=== PATIENT | male | born 1965 ===

== ENCOUNTER 2017-02-24 11:39 | Day surgery (SDC) | payer BC ==
--- NOTE | 2017-02-24 09:09 | PCM.OPNOTE ---
- General Post-Op/Procedure Note Date of Surgery/Procedure: 02/24/17 Operative Procedure(s): Right Inguinal Hernia Repair Findings: Right Indirect Inguinal Hernia Pre Op Diagnosis: Right Inguinal Hernia Post-Op Diagnosis: Right Indirect Inguinal Hernia Anesthesia Technique: General ET tube Primary Surgeon: Vanessa Rangel Fluid Replacement, Intraop: 700 (ml) EBL in mLs: 10 Complications: None Condition: Good
[~2017-02-24 11:39] MED LIST: Bupivacaine 0.5% 30 ML SDV ONE; Ketorolac 30 MG/ML SDV ONE; Lactated Ringers 1,000 ML IV SCH; Lidocaine 2% 5 ML SDV ONE; Midazolam 1 MG/ML 2 ML SDV ONE; Neostigmine Methylsulfate 1 MG/ML 5 ML Syringe ONE; Ondansetron 4 MG/2 ML SDV ONE; Propofol 200 MG/20 ML SDV ONE; Rocuronium 10 MG/ML 10 ML Syringe ONE; Sodium Chloride 0.9% 10 ML Syringe FLUSH PRN; Sodium Chloride 0.9% 2.5 ML Syringe FLUSH PRN; ceFAZolin 2 GM in Premix Bag 1 BAG IV ONE; fentaNYL 100 MCG/2 ML SDV ONE; fentaNYL 250 MCG/5 ML SDV ONE
--- NOTE | 2017-02-24 12:38 | PCM.PREANE ---
Preanesthetic Assessment - Anesthesia/Transfusion/Family Hx Anesthesia History: Prior Anesthesia Without Reaction Other Type of Anesthesia Reaction Comment: pt states he is hard to wake, unsure of family hx as he is adopted Transfusion History: No Prior Transfusion(s) Intubation History: Unknown - Review of Systems General: No Symptoms Pulmonary: No Symptoms Cardiovascular: No Symptoms Gastrointestinal: No symptoms Neurological: No Symptoms Other: Reports: None - Physical Assessment Height: 1.83 m Weight: 78.018 kg ASA Class: 1 Mental Status: Alert & Oriented x3 Airway Class: Mallampati = 2 Dentition: Reports: Normal Dentition Thyro-Mental Finger Breadths: 3 Mouth Opening Finger Breadths: 3 ROM/Head Extension: Full Lungs: Clear to auscultation, Normal respiratory effort Cardiovascular: Regular Rate, Regular Rhythm - Allergies Allergies/Adverse Reactions: Allergies Allergy/AdvReac Type Severity Reaction Status Date / Time dust/pollen Allergy runny nose Uncoded 02/18/17 08:14 - Blood Blood Available: No - Anesthesia Plan Pre-Op Medication Ordered: None - Acknowledgements Anesthesia Type Planned: General Anesthesia Pt an Appropriate Candidate for the Planned Anesthesia: Yes Alternatives and Risks of Anesthesia Discussed w Pt/Guardian: Yes Pt/Guardian Understands and Agrees with Anesthesia Plan: Yes PreAnesthesia Questionnaire HEENT History: Reports: Allergic Rhinitis, Other (See Below) (lost vision to the right due to injury by soft ball 10 years ago) Genitourinary History: Reports: None - Past Surgical History Head Surgeries/Procedures: Reports: None HEENT Surgical History: Reports: Naso-Sinus Surgery, Tonsillectomy, Other (See Below) Other HEENT Surgeries/Procedures: vitreous of the rt eye due to trauma Male Surgical History: Reports: Vasectomy Musculoskeletal Surgical History: Reports: Other (See Below) Other Musculoskeletal Surgeries/Procedures:: left knee surgery for ligament repair - SUBSTANCE USE Smoking Status *Q: Never Smoker Recreational Drug Use History: No - HOME MEDS Home Medications: Home Meds . [No Known Home Meds] 02/18/17 [History] - CURRENT (IN HOUSE) MEDS Current Meds: Current Medications Lactated Ringer's (Ringers, Lactated) 1,000 mls @ 125 mls/hr IV ASDIRECTED YOVANY Last Admin: 02/24/17 12:00 Dose: 125 mls/hr Sodium Chloride (Saline Flush) 10 ml FLUSH ASDIRECTED PRN PRN Reason: Keep Vein Open Sodium Chloride (Saline Flush) 2.5 ml FLUSH ASDIRECTED PRN PRN Reason: Keep Vein Open Discontinued Medications Bupivacaine HCl (Marcaine 0.5%) Confirm Administered Dose 30 ml .ROUTE .STK-MED ONE Stop: 02/24/17 08:42 Fentanyl (Sublimaze) Confirm Administered Dose 100 mcg .ROUTE .STK-MED ONE Stop: 02/24/17 11:29 Fentanyl (Sublimaze) Confirm Administered Dose 250 mcg .ROUTE .STK-MED ONE Stop: 02/24/17 11:29 Glycopyrrolate () Confirm Administered Dose 1 mg .ROUTE .STK-MED ONE Stop: 02/24/17 11:29 Cefazolin Sodium/Dextrose 2 gm (/ Premix) 50 mls @ 100 mls/hr IV ONETIME ONE Stop: 02/22/17 08:22 Ketorolac Tromethamine (Toradol) Confirm Administered Dose 30 mg .ROUTE .STK- MED ONE Stop: 02/24/17 11:29 Lidocaine (Xylocaine-Mpf 2%) Confirm Administered Dose 10 ml .ROUTE .STK-MED ONE Stop: 02/24/17 11:28 Midazolam HCl (Versed 1 Mg/Ml) Confirm Administered Dose 2 mg .ROUTE .STK-MED ONE Stop: 02/24/17 11:29 Neostigmine Methylsulfate (Neostigmine) Confirm Administered Dose 5 mg .ROUTE .STK-MED ONE Stop: 02/24/17 11:29 Ondansetron HCl (Zofran) Confirm Administered Dose 4 mg .ROUTE .STK-MED ONE Stop: 02/24/17 11:29 Propofol (Diprivan 20 Ml) Confirm Administered Dose 400 mg .ROUTE .STK-MED ONE Stop: 02/24/17 11:29 Rocuronium [place] (Zemuron) Confirm Administered Dose 100 mg .ROUTE .STK-MED ONE Stop: 02/24/17 11:29
[2017-02-24] MEDS ORDERED: fentaNYL 100 MCG/2 ML SDV IVPUSH PRN (14:18)
[2017-02-24] MEDS ORDERED: Acetaminophen/oxyCODONE 325-5 MG Tab PO ONE (15:13)
--- NOTE | 2017-02-24 15:35 | PCM.POSTAN ---
POST ANESTHESIA ASSESSMENT - MENTAL STATUS Mental Status: alert, oriented - RESPIRATORY Respiratory Status: respiratory rate WNL, airway patent, O2 saturation stable - CARDIOVASCULAR CV Status: pulse rate WNL, blood pressure stable - GASTROINTESTINAL GI Status: no symptoms - PAIN Pain Score: 2 - POST OP HYDRATION Hydration Status: adequate & stable - OBSERVATIONS Free Text/Narrative:: no anesthesia problems
--- NOTE | 2017-02-24 16:23 | PCM48HPAN ---
Post Anesthesia Note - EVALUATION WITHIN 48HRS OF ANESTHETIC Vital Signs in Normal Range: Yes Patient Participated in Evaluation: Yes Respiratory Function Stable: Yes Airway Patent: Yes Cardiovascular Function Stable: Yes Hydration Status Stable: Yes Pain Control Satisfactory: Yes Nausea and Vomiting Control Satisfactory: Yes Mental Status Recovered: Yes - COMMENTS/OBSERVATIONS Free Text/Narrative:: Pt doing well with no anesthesia complaints. VSS. No apparent complications.
[2017-02-24 16:54] VITALS: BP 141/89
--- NOTE | 2017-02-24 21:26 | OR ---
SURGEON: AGUSTIN CROOKS MD DATE OF PROCEDURE: 02/24/2017 PREOPERATIVE DIAGNOSIS: Right inguinal hernia. POSTOPERATIVE DIAGNOSIS: Right indirect inguinal hernia. PROCEDURE PERFORMED: Right inguinal hernia repair with mesh CONSTRUCTION PRODUCER: Dr. James Gonzalez, senior vice president & general counsel. ANESTHESIA: General endotracheal anesthesia. FINDINGS: Cord lipoma associated with a small indirect inguinal hernia sac containing fat. FLUIDS: 700 mL crystalloid. EBL: 10 mL. COMPLICATIONS: None. INDICATIONS: The patient is a 51-year-old male, who presents with a right inguinal hernia. The patient and I discussed the option of laparoscopic and open repair. The patient would like to undergo open repair with mesh. We discussed the procedure as well as expected perioperative course. We discussed the risks, including bleeding, infection, or damage to surrounding structures. The patient verbalized understanding and wished to proceed. PROCEDURE IN DETAIL: The patient was brought into the operating room and placed on the OR table in supine position. A time-out was completed verifying the patient's name, age, date of , allergies, and procedure to be performed. The abdomen was clipped of hair. The right lower quadrant was prepped with DuraPrep and draped in standard sterile fashion. The genitalia were prepped as well and draped separately. 0.5% Marcaine plain was used to anesthetize my surgical site. A 15 blade scalpel was used to make an oblique incision, parallel and superior to the inguinal ligament. This was deepened through Carmencita's fascia using electrocautery down to the external oblique aponeurosis. The external oblique was opened in the direction of its fibers through the external ring. The inguinal floor was exposed by creating superior and inferior flaps of the external oblique. The spermatic cord was identified and mobilized at the pubic tubercle, then isolated using a Roselia drain. A large cord lipoma was noted. This was carefully dissected free of the cord down to the level of the internal ring. Upon getting close to the internal ring, I noticed a very small indirect inguinal hernia sac. This contains fat. This was gently dissected free of the cord contents and reduced back into the abdomen. A medium-sized plug and pouch were then brought into the field. The plug was placed within the internal ring and sutured to the overlying tissue with oh Ethibond sutures. The floor of the inguinal canal was assessed and found to be intact. A medium-sized piece of mesh was then cut to size with a longitudinal lateral opening. Starting at the pubic tubercle, the mesh was secured flat with interrupted 0 Ethibond sutures to the reflected edge of the inguinal ligament inferiorly and the conjoint tendon superiorly. The end of the patch were then draped around the cord structures enough to allow an opening big enough to just except the tip of my finger. They were secured with interrupted 0 Ethibond sutures as well. The Roselia drain was removed and the cord itself was returned to its normal anatomic location above the mesh. The wound was irrigated with normal saline. The external oblique aponeurosis was reapproximated using a running 3-0 Vicryl paying particular attention to the ilioinguinal nerve to protect it from injury. The Carmencita's fascia was closed with a running 3-0 Vicryl suture as well and the skin closed using a 4-0 subcuticular continuous monofilament suture. The operative field was cleaned and dried and Steri-Strips and sterile dressings were applied. The testes were gently pulled down into the anatomic position in the scrotum. The there were no intraoperative complications. All instrument and sponge counts were correct. The past the patient was extubated and transferred to the PACU in stable condition. REKHA VELAZCO /[id number]
== END 2017-02-24 16:45 | disposition home or self-care (01) ==
LOC: MW.SDS 11:39
PROVIDERS: ATTEND Surgery
DX: K40.90 Unilateral inguinal hernia, without obstruction or gangrene, not specified as recurrent (principal); Z91.09 Other allergy status, other than to drugs and biological substances; Z98.890 Other specified postprocedural states; Z98.52 Vasectomy status; Z78.9 Other specified health status
CPT/HCPCS: 49505; C1781; J0690; J1885; J2250; J2405; J3010; J7120; 00830; 88302; J2704